=== PATIENT | female | born 1930 ===

== ENCOUNTER → 2016-10-06 | Outpatient (CLI) | payer BC, OTHER ==
[~2016-10-06] MED LIST: AMLH/550 PO; ASPEC81 PO; IPRA1AER2 INH; MCRK20 PO; PLMIN90 INH; SNM/25100 PO
[2016-10-06 18:18] LABS: URINE APPEARANCE CLEAR (CLEAR); URINE BILIRUBIN NEG (NEG); URINE COLOR YELLOW; URINE EPITHELIAL CELL AUTO 0-5 /lpf (0-5); URINE NITRITE POS (NEG); UROBILINOGEN NEG (NEG)
[2016-10-06 18:39] LABS: MANUAL MICROSCOPIC REQUIRED? NO; REVIEW REQ? NO
== END | disposition home or self-care (01) ==
LOC: C.LABMFLN 14:03
PROVIDERS: ATTEND Family Medicine
DX: R82.90 Unspecified abnormal findings in urine (principal)